=== PATIENT | male | born 2000 | race Two or more races ===

== ENCOUNTER 2018-02-10 13:49 | Emergency (ER) | payer MEDICAID ==
[2018-02-10 13:54] VITALS: BP 134/84
--- NOTE | 2018-02-10 13:56 | ER Report ---
History and Physical Time Seen By MD: 13:56 Hx. 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 able to move finger flexion and extension Allergies: Coded Allergies: No Known Drug Allergies (Unverified , 02/10/18) Home Meds Active Scripts Ibuprofen (IBUPROFEN) 800 Mg Tablet, 1 TAB PO Q8H, #30 TAB Prov:CARLOS GODFREY 02/10/18 Past Medical/Surgical History negative Reviewed Nurses Notes: Yes Old Medical Records Reviewed: Yes Hx Smoking: No Exposure to Second Hand Smoke?: No Hx Substance Use Disorder: No Hx Alcohol Use: No Family History of: Other Constitutional Vital Sign - Last 24 Hours 02/10/18 13:54 Temp 99.3 Pulse 65 Resp 18 B/P (MAP) 134/84 Pulse Ox 97 O2 Delivery Room Air Physical Exam alert and oriented nad, hrr lungs cta, pain base of third finger, tendons appear intact. Medical Decision Making ED Course/Re-evaluation ED Course X-ray of his left hand is negative tendons are intact we will give him high- dose Motrin day off work instructions for contusion of left hand Re-evaluation contusion left hand Decision to Disposition Date: Feb 10, 2018 Decision to Disposition Time: 14:30 Depart Departure Latest Vital Signs Vital Signs Date Time Temp Pulse Resp B/P (MAP) Pulse Ox O2 Delivery O2 Flow Rate FiO2 02/10/18 13:54 99.3 65 18 134/84 97 Room Air Impression: Primary Impression: Contusion, hand Condition: Improved Disposition: HOME OR SELF-CARE Referrals: [facility] 1 Day New Scripts Ibuprofen (IBUPROFEN) 800 Mg Tablet 1 TAB PO Q8H, #30 TAB Prov: CARLOS GODFREY 02/10/18 Patient Instructions: Contusion in Adults (DC) Additional Instructions: No work tomorrow, Motrin as needed for pain, see her primary care physician for further evaluation if pain is unresolved CARLOS GODFREY Feb 10, 2018 13:56
--- NOTE | 2018-02-10 15:03 | RADIOLOGY IMAGING REPORT ---
FACILITY: [facility] [place] PATIENT NAME: Perez Donahue : 2000 MR: [id number] V: [id number] EXAM DATE: ORDERING PHYSICIAN: CARLOS GODFREY TECHNOLOGIST: Location: [facility] Patient: Perez Donahue : 2000 Visit/Account:[id number] Date of Sevice: 02/10/2018 Exam type: HAND COMPLETE LEFT History: 3rd finger popped, pain at base of third metacarpal Comparison: None. Findings: There is no evidence of acute fracture or dislocation involving the left hand. No radiopaque soft ti ssue foreign body seen. No significant arthritic change identified IMPRESSION: 1. No acute osteoarticular abnormality the left hand is seen Report Dictated By: Betsy Oconnor MD at 02/10/2018 2:55 PM Report E-Signed By: Betsy Oconnor MD at 02/10/2018 2:58 PM WSN:[email or web address]
[2018-02-10] MEDS ORDERED: IBUP800T37 PO (15:12)
== END 2018-02-10 15:20 | disposition home or self-care (01) ==
LOC: ER 13:55
DX: S60.222A Contusion of left hand, initial encounter (principal)
CPT/HCPCS: 99283